=== PATIENT | male | born 1975 | race Caucasian/White ===

== ENCOUNTER 2023-08-15 17:06 | Emergency (ER) | payer OTHER, SELFPAY ==
[2023-08-15 17:16] VITALS: BMI 22.9
[2023-08-15 17:17] LABS: Glucose - Point of Care 392 mg/dl (70-99)
[2023-08-15 17:17] LABS: Venous Blood Gas B.E. 2.6 mmol/L (-4 to +4); Venous Blood Gas HCO3 27.2 mmol/L (22-27); Venous Blood Gas O2 Sat % 86.2 %; Venous Blood Gas pCO2 41 mmHg (35-48); Venous Blood Gas pH 7.43 (7.32-7.43); Venous Blood Gas pO2 53 mmHg (30-50)
[2023-08-15 17:18] VITALS: BP 146/85
[2023-08-15 17:18] LABS: % Basophils 0.2 % (0-2); Absolute Immature Granulocytes 0.1 10^3/uL (0-0.05); Absolute Monocytes 0.9 10^3/uL (0.1-0.6); Nucleated Red Blood Cells % 0 % (-); Red Cell Dist. Width 11.8 % (11.5-14.5); White Blood Cell Count 12.8 10^3/uL (4.8-10.8)
[2023-08-15 17:29] LABS: ALT (SGPT) 40 U/L (0-50); AST (SGOT) 29 U/L (17-59); Albumin 4.6 g/dl (3.5-5.0); Alkaline Phosphatase 108 U/L (38-126); Blood Urea Nitrogen 9 mg/dl (9-20); Calcium 9.6 mg/dl (8.4-10.2); Carbon Dioxide 24 mmol/L (22-30); Chloride 99 mmol/L (98-107); Estimated Creatinine Clearance > 125 ml/min; Glucose 385 mg/dl (70-99); Lipase 12 U/L (23-300); Sodium 133 mmol/L (135-145); Total Bilirubin 1.4 mg/dl (0.2-1.3); Total Protein 7.1 g/dl (6.3-8.2); eGFR > 60.00
[2023-08-15 17:36] LABS: B-Hydroxybutyrate 0.12 mmol/L (0.02-0.27)
--- NOTE | 2023-08-15 17:38 | ED.GENMED ---
History of Present Illness
General
Chief Complaint: Blood Sugar Problem
Source: patient
Exam Limitations: none
Time Seen by Provider: 08/15/23 17:20
Nursing documentation reviewed up to this point in time: agreed with
Travel History
Have you had any contact with someone who has COVID-19?: No
Do you have any symptoms of coronavirus? Fever > 100 degrees, chills, cough, shortness of breath, sore throat, loss of taste or smell, muscle aches, or headache?: No
History of Present Illness
History of Present Illness:
48-year-old male presents emergency department due to tach and sweating and shaking. Patient felt clammy. Present with concern for hyperglycemia/DKA. Blood sugar was 426 en route, 457 earlier. At 1 PM he received 13 units of insulin, and 12
units of insulin at 4:15 PM. He just got to the detention yesterday, and had not received insulin for 16 hours per the patient.
Past History
Past History
ED Past Medical History: HTN, Hypercholesterolemia, IDDM, Psychiatric (Anxiety) and Other (Chronic pancreatitis)
ED Past Surgical History: Orthopedic (Left knee surgery, ACL repair)
Social History
Tobacco: Smoker
Alcohol: Former
Drug: None
Living: detention
Review of Systems
Review of Systems
Allergies reviewed?: Yes
All Other Systems: Not applicable
Constitutional: Reports no symptoms
EENT: Reports no symptoms
Respiratory: Reports no symptoms
Cardiac: Reports diaphoresis
ABD/GI: Reports no symptoms
: Reports no symptoms
Musculoskeletal: Reports no symptoms
Skin: Reports no symptoms
Neurological: Reports no symptoms
Endocrine: Reports no symptoms
Hematologic/Lymphatic: Reports no symptoms
Psychiatric: Reports no symptoms
Phy Exam
Physical Exam
Physical Exam:
Physical Exam
General: no apparent distress, not acutely ill
Neck: supple. no meningeal signs. normal posterior pharynx
Heart: s1/s2 regular rate and rhythm, no murmur. equal radial
pulses.
HEENT: Pupils equal round reactive to light, EOMI
Lungs: no acute respiratory distress. clear bilaterally
Abdomen: normal bowel sounds. Mild right upper quadrant tenderness. No rebound or guarding. No CVAT
Neuro: alert and oriented. no focal neurological deficits cranial nerves II through XII intact
Skin: no rash
Psychiatric: well kept. interactive and cooperative
Extremities: no edema. no calf tenderness. negative homans. good distal pulses
Course
Orders/Labs/Results
Orders:
Orders
08/15/23 17:10
Cardiac Monitoring- Treatment ONCE
08/15/23 17:11
B-Hydroxybutyrate Urgent
Comprehensive Metabolic Panel Urgent
Lipase Urgent
08/15/23 17:12
Complete Blood Count/With Diff Urgent
Venous Blood Gas Urgent
%Oxygen/Room Air: ra
08/15/23 17:37
0.9% Sodium Chloride 1000 ml [Nss] 1,000 ml IV BOLUS
08/15/23 18:30
US Abdomen Complete/Upper Urgent
Comment:
Reason For Exam: ruq/epigastric pain
08/15/23 18:31
Bedside Glucose- Treatment ONCE
Abnormal Lab Results
08/15/23 08/15/23 08/15/23
17:11 17:12 17:16
WBC 12.8 H 10^3/uL
(4.8-10.8)
RBC 4.28 L 10^6/uL
(4.70-6.10)
Hct 36.6 L %
(39.0-52.0)
MCH 32.0 H pg
(27.0-31.0)
MCHC 37.4 H g/dL
(33.0-37.0)
Abs Immat Gran (auto) 0.1 H 10^3/uL
(0-0.05)
Absolute Neuts (auto) 10.3 H 10^3/uL
(1.4-6.5)
Absolute Monos (auto) 0.9 H 10^3/uL
(0.1-0.6)
Immature Gran % 0.8 H %
(0-0.5)
Neutrophils % 80.2 H %
(42.2-75.2)
Lymphocytes % 11.8 L %
(20.5-51.1)
VBG pO2 53 H mmHg
(30-50)
VBG HCO3 27.2 H mmol/L
(22-27)
Sodium 133 L mmol/L
(135-145)
Creatinine 0.5 L mg/dL
(0.7-1.3)
Glucose 385 H mg/dl
(70-99)
Total Bilirubin 1.4 H mg/dl
(0.2-1.3)
Lipase 12 L U/L
(23-300)
POC Glucose 392 H mg/dl
(70-99)
08/15/23
18:51
WBC
RBC
Hct
MCH
MCHC
Abs Immat Gran (auto)
Absolute Neuts (auto)
Absolute Monos (auto)
Immature Gran %
Neutrophils %
Lymphocytes %
VBG pO2
VBG HCO3
Sodium
Creatinine
Glucose
Total Bilirubin
Lipase
POC Glucose 262 H mg/dl
(70-99)
08/15/23 17:12
08/15/23 17:11
Vital Signs
Initial and Last Documented VS:
Initial Vital Signs
Temp Pulse Resp BP Pulse Ox
98.1 F 85 18 146/85 96
08/15/23 17:18 08/15/23 17:18 08/15/23 17:18 08/15/23 17:18 08/15/23 17:18
Last Documented Vital Signs
Temp Pulse Resp BP Pulse Ox
98.1 F 74 15 153/83 97
08/15/23 17:18 08/15/23 19:30 08/15/23 19:30 08/15/23 19:00 08/15/23 19:30
MDM/Problems Addressed
Differential Diagnosis Includes:
Pancreatitis, DKA, hyperglycemia
MDM/Problems Addressed:
48-year-old male with hyperglycemia, likely due to not receiving insulin for the past 16 hours. He is now back on his insulin. No signs of DKA. Abdominal ultrasound no acute findings, do not suspect pancreatitis or cholecystitis. Stable for
discharge to detention. Will resume insulin dosing.
Chronic conditions affecting care: DM
Acute Exacerbation and/or Progression of Chronic Illness: DM
*Radiology
Radiology exam reviewed: radiology read reviewed (Ultrasound abdomen no acute findings)
*Pulse Oximetry
Patient hypoxic: no
*EKG
Interpreted by ED Provider?: NA
*Keeler Polygraph Operator Interpretation
Rate: normal
Interpretation: normal
Heart Rate: 75
Rhythm: sinus
*Critical Care Note
Total Time (30-74mins, 75-104mins- exclusive of procedures): Not Applicable
Patient Management
Social determinants of health affecting care: Living situation, Substance abuse and Poor outpatient follow-up
Escalation/DeEscalation of care consider admission/obs:
Admit not indicated
ED Attending Note
-
Portions of this chart may have been created with voice recognition software.� Occasional wrong word or��sound alike� substitutions may have occurred due to the inherent limitations of voice recognition software.
Discharge Plan
Departure
Patient Disposition: [facility]
Date of Disposition: 08/15/23
Time of Disposition: 21:08
Patient with high blood pressure during this ER visit?: Yes
Condition: Good
Discharge Problem:
Acute hyperglycemia, Abdominal pain
Instructions: Diabetes Type 1, Adult (DC), Abdominal Pain, Adult ED, BLOOD PRESSURE
Referrals:
[facility] [Family Provider] - Follow up in 2-3 days
Interventions
Interventions:
*Risk Screen - Suicide Last Done: 08/15/23 17:23
*General Assessment Last Done: 08/15/23 17:23
*Neglect/Abuse Screening Last Done: 08/15/23 17:23
ED- Fall Risk Assessment Last Done: 08/15/23 17:23
*ED COVID-19 Vaccine History Last Done: 08/15/23 17:20
ED- Neurological Assessment Last Done: 08/15/23 17:25
[2023-08-15] MEDS: NSS 1000 IV (17:40)
[2023-08-15 17:41] LABS: % Immature Granulocytes 0.8 % (0-0.5); % Lymphocytes 11.8 % (20.5-51.1); % Neutrophils 80.2 % (42.2-75.2); Absolute Lymphocytes 1.5 10^3/uL (1.2-3.4); Absolute Neutrophils 10.3 10^3/uL (1.4-6.5); Hematocrit 36.6 % (39.0-52.0); Hemoglobin 13.7 g/dL (13.0-18.0); Mean Corp Hgb Conc. 37.4 g/dL (33.0-37.0); Mean Corpuscular Volume 85.5 fL (80.0-94.0); Mean Platelet Volume 9.5 fL (7.4-10.4); Platelet Count 248 10^3/uL (130-400); Red Blood Cell Count 4.28 10^6/uL (4.70-6.10)
[2023-08-15 18:00] VITALS: BP 142/72
[2023-08-15 18:54] LABS: Glucose - Point of Care 262 mg/dl (70-99)
[2023-08-15 19:00] VITALS: BP 153/83
[2023-08-15 20:50] VITALS: BP 129/74
[2023-08-15 21:00] VITALS: BP 137/75
[2023-08-15] MEDS: PROTONIX IV 40 MG IV (21:38)
[2023-08-15 23:18] LABS: Glucose - Point of Care 149 mg/dl (70-99)
== END 2023-08-15 23:43 ==
LOC: EMR 17:06
PROVIDERS: EMERGENCY PHYSICIAN Emergency Medicine
DX: E11.65 Type 2 diabetes mellitus with hyperglycemia (principal); R10.9 Unspecified abdominal pain; R00.0 Tachycardia, unspecified; I10 Essential (primary) hypertension; E78.00 Pure hypercholesterolemia, unspecified; F17.200 Nicotine dependence, unspecified, uncomplicated; K86.1 Other chronic pancreatitis
CPT/HCPCS: 99284; 96374; 96361; 76700; 80053; 82010; 82805; 82962; 83690; 85025

== ENCOUNTER 2023-08-16 16:02 | Emergency (ER) | payer OTHER, SELFPAY ==
[2023-08-16] VITALS (7 sets, daily range): BP systolic 108–174; BP diastolic 63–94; BMI 21.1
[2023-08-16 16:16] LABS: Glucose - Point of Care 202 mg/dl (70-99)
[2023-08-16 16:25] LABS: % Basophils 0.2 % (0-2); % Eosinophils 0.1 % (0-6); % Immature Granulocytes 0.4 % (0-0.5); % Lymphocytes 16.5 % (20.5-51.1); % Monocytes 7.7 % (1.7-9.3); % Neutrophils 75.1 % (42.2-75.2); Absolute Immature Granulocytes 0.1 10^3/uL (0-0.05); Absolute Lymphocytes 2.1 10^3/uL (1.2-3.4); Absolute Neutrophils 9.7 10^3/uL (1.4-6.5); Hematocrit 38.1 % (39.0-52.0); Hemoglobin 14.3 g/dL (13.0-18.0); Mean Corp Hgb Conc. 37.5 g/dL (33.0-37.0); Mean Corpuscular Hgb 32.3 pg (27.0-31.0); Mean Platelet Volume 9.2 fL (7.4-10.4); Nucleated Red Blood Cells % 0 % (-); Platelet Count 249 10^3/uL (130-400); Red Blood Cell Count 4.43 10^6/uL (4.70-6.10); Red Cell Dist. Width 11.7 % (11.5-14.5); White Blood Cell Count 12.9 10^3/uL (4.8-10.8)
[2023-08-16 16:37] LABS: ALT (SGPT) 20 U/L (0-50); AST (SGOT) 26 U/L (17-59); Albumin 4.8 g/dl (3.5-5.0); Alkaline Phosphatase 114 U/L (38-126); Blood Urea Nitrogen 10 mg/dl (9-20); Calcium 9.8 mg/dl (8.4-10.2); Carbon Dioxide 28 mmol/L (22-30); Chloride 103 mmol/L (98-107); Estimated Creatinine Clearance > 125 ml/min; Glucose 212 mg/dl (70-99); Lipase 12 U/L (23-300); Sodium 138 mmol/L (135-145); Total Bilirubin 1.5 mg/dl (0.2-1.3); Total Protein 7.4 g/dl (6.3-8.2); eGFR > 60.00
--- NOTE | 2023-08-16 17:19 | ED.GENMED ---
History of Present Illness
General
Chief Complaint: Abdominal Symptoms
Source: patient
Time Seen by Provider: 08/16/23 16:59
Travel History
Have you had any contact with someone who has COVID-19?: No
Do you have any symptoms of coronavirus? Fever > 100 degrees, chills, cough, shortness of breath, sore throat, loss of taste or smell, muscle aches, or headache?: No
History of Present Illness
History of Present Illness:
48-year-old male sent to the emergency room from [facility] for evaluation of abdominal pain. Patient was here last evening primarily for hyperglycemia. Patient states he has episodes of abdominal pain from time to time.
He has had pancreatitis before. He felt chills but no known fever. He has not vomited.
Past History
Past History
ED Past Medical History: HTN, Hypercholesterolemia, IDDM, Psychiatric (Anxiety) and Other (Chronic pancreatitis)
ED Past Surgical History: Orthopedic (Left knee surgery, ACL repair)
Social History
Tobacco: Smoker
Alcohol: Former
Drug: None
Living: [facility]
Phy Exam
Physical Exam
Physical Exam:
General: Awake, Alert, Oriented X3. No acute distress.
Vitals: unremarkable
Head: Atraumatic
Eyes: Pupils equal, EOMI
Throat: Airway intact, no exudates
Neck: Trachea midline
Lungs: Clear and equal b/l
Heart: Regular rate, no murmurs
Abd: Soft, mild diffusely tender, no rebound, no rigidity, no guarding no pulsatile mass
Neuro: Nonfocal
Skin: Warm, dry, no rash
Extremities: pulses equal b/l, no edema
Course
Orders/Labs/Results
Orders:
Orders
08/16/23 16:12
Complete Blood Count/With Diff Urgent
Comprehensive Metabolic Panel Urgent
Lipase Urgent
08/16/23 17:18
CT Abd/pel W Iv And Oral Contr Urgent
Comment:
Reason For Exam: upper abdominal pain
Iohexol [Omnipaque] See Protocol PO NOW STA
Ketorolac [Toradol] 15 mg IV NOW STA
08/16/23 22:25
Mag Hydrox/Al Hydrox/Simeth [Maalox] 30 ml Phenobarb/Hyoscy/Atropine/Scop [] 10 ml Viscous Lidocaine 2% [Xylocaine Viscous Cup] 10 ml PO NOW
08/16/23 22:27
Phenobarb/Hyoscy/Atropine/Scop [] 10 ml .ROUTE .STK-MED ONE
08/16/23 22:28
Mag Hydrox/Al Hydrox/Simeth [Maalox] 30 ml .ROUTE .STK-MED ONE
Viscous Lidocaine 2% [Xylocaine Viscous Cup] 15 ml .ROUTE .STK-MED ONE
Abnormal Lab Results
08/16/23 08/16/23
16:12 16:13
WBC 12.9 H 10^3/uL
(4.8-10.8)
RBC 4.43 L 10^6/uL
(4.70-6.10)
Hct 38.1 L %
(39.0-52.0)
MCH 32.3 H pg
(27.0-31.0)
MCHC 37.5 H g/dL
(33.0-37.0)
Abs Immat Gran (auto) 0.1 H 10^3/uL
(0-0.05)
Absolute Neuts (auto) 9.7 H 10^3/uL
(1.4-6.5)
Absolute Monos (auto) 1.0 H 10^3/uL
(0.1-0.6)
Lymphocytes % 16.5 L %
(20.5-51.1)
Creatinine 0.5 L mg/dL
(0.7-1.3)
Glucose 212 H mg/dl
(70-99)
Total Bilirubin 1.5 H mg/dl
(0.2-1.3)
Lipase 12 L U/L
(23-300)
POC Glucose 202 H mg/dl
(70-99)
08/16/23 16:12
08/16/23 16:12
Vital Signs
Initial and Last Documented VS:
Initial Vital Signs
Pulse
86
08/16/23 16:09
Last Documented Vital Signs
Temp Pulse Resp BP Pulse Ox
98.0 F 98 17 165/63 100
08/16/23 16:13 08/16/23 22:30 08/16/23 22:30 08/16/23 22:00 08/16/23 22:30
MDM/Problems Addressed
Differential Diagnosis Includes:
Pancreatitis, cholecystitis, gastritis
MDM/Problems Addressed:
Patient presents with abdominal pain. He tells me he has not had abdominal pain on and off for quite some time. He has been admitted many times. CT today performed which is unremarkable. Labs are unremarkable. No evidence for an unstable
process. Patient stable for discharge back to the [facility]. Recommend GI follow-up.
*Radiology
Radiology exam reviewed: radiology read reviewed
*Pulse Oximetry
Patient hypoxic: no
*Critical Care Note
Total Time (30-74mins, 75-104mins- exclusive of procedures): Not Applicable
Data Reviewed
Review of Other/Old Records Reveals: Records (ER visit from yesterday)
ED Attending Note
-
Portions of this chart may have been created with voice recognition software.� Occasional wrong word or��sound alike� substitutions may have occurred due to the inherent limitations of voice recognition software.
Discharge Plan
Departure
Patient Disposition: Nursing Home
Date of Disposition: 08/16/23
Time of Disposition: 22:25
Patient with high blood pressure during this ER visit?: No
Condition: Good
Discharge Problem:
Abdominal pain
Referrals:
[facility] [Family Provider] -
Activity Restrictions/Additional Instructions:
Pt has a normal CT scan and normal labs. He tells me he has been having abdominal pain for some time and has been to ER multiple times w/o a clear source. Pt stable for discharge.
Interventions
Interventions:
*Risk Screen - Suicide Last Done: 08/16/23 16:13
*General Assessment Last Done: 08/16/23 16:13
*Neglect/Abuse Screening Last Done: 08/16/23 16:13
ED- Fall Risk Assessment Last Done: 08/16/23 16:13
*ED COVID-19 Vaccine History Last Done: 08/16/23 16:13
[facility]-Jqpbxlabyo Assessment Last Done: 08/16/23 16:13
[2023-08-16] MEDS: OMNIPAQUE 50 ML PO (17:27)
[2023-08-16] MEDS: TORADOL 15 MG IV (17:28)
[2023-08-16] MEDS: MAALOX 50 PO (22:29)
== END 2023-08-16 22:54 ==
LOC: EMR 16:02
PROVIDERS: EMERGENCY PHYSICIAN Emergency Medicine
DX: R10.9 Unspecified abdominal pain (principal); I10 Essential (primary) hypertension; E78.00 Pure hypercholesterolemia, unspecified; E11.65 Type 2 diabetes mellitus with hyperglycemia; F41.9 Anxiety disorder, unspecified; K86.1 Other chronic pancreatitis; F17.200 Nicotine dependence, unspecified, uncomplicated; Z87.19 Personal history of other diseases of the digestive system
CPT/HCPCS: 99284; 96374; 74177; 80053; 82962; 83690; 85025; Q9967